=== PATIENT | female | born 1935 | race Caucasian/White ===

== ENCOUNTER 2021-07-23 08:27 | Emergency (ER) | payer OTHER, MEDICARE ==
[2021-07-23] MEDS ORDERED: Bupivacaine 0.5% 10 ML VIAL ONE ×2 (11:11)
== END 2021-07-23 11:56 | disposition home or self-care (01) ==
LOC: ERS 08:27
DX: S52.592A Other fractures of lower end of left radius, initial encounter for closed fracture (principal); S52.615A Nondisplaced fracture of left ulna styloid process, initial encounter for closed fracture; W01.0XXA Fall on same level from slipping, tripping and stumbling without subsequent striking against object, initial encounter
CPT/HCPCS: 25605; J3490

== ENCOUNTER 2021-07-27 10:22 | Outpatient (CLI) | payer MEDICARE, OTHER ==
[2021-07-27 23:18] LABS: SARS-CoV-2 PCR by NAA Not Detected (NotDetected)
== END 2021-07-27 10:23 | disposition home or self-care (01) ==
LOC: LABBT 10:22
PROVIDERS: ATTEND Orthopaedic Surgery
DX: Z01.818 Encounter for other preprocedural examination (principal); S52.502A Unspecified fracture of the lower end of left radius, initial encounter for closed fracture; Z20.822 Contact with and (suspected) exposure to COVID-19
CPT/HCPCS: 93005; U0003; U0005; 93010

== ENCOUNTER 2021-07-30 10:28 | Day surgery (SDC) | payer OTHER, MEDICARE ==
[2021-07-25 10:25] VITALS: BMI 21.0
[2021-07-30] MEDS ORDERED: ceFAZolin Sodium (SDC) 2 GM/100 ML BAG ONE (11:13)
[2021-07-30] MEDS ORDERED: Fentanyl 100 MCG/2 ML VIAL ONE (12:31)
[2021-07-30] MEDS ORDERED: Propofol 500 MG/50 ML VIAL ONE ×2 (13:01→13:02)
[2021-07-30] MEDS ORDERED: PHENYLEPHRINE-NS 100 MCG/ML 10 ML SYRINGE ONE (13:23)
[2021-07-30] MEDS ORDERED: PROPOFOL 200 MG/20 ML VIAL ONE (13:23)
[2021-07-30] MEDS ORDERED: Ropivacaine 0.5% HCl/PF (150 MG/30 ML VIAL) ONE (13:23)
== END 2021-07-30 15:28 | disposition home or self-care (01) ==
LOC: SDC 10:28
PROVIDERS: ATTEND Orthopaedic Surgery
PROC: 0PSJ04Z Reposition Left Radius with Internal Fixation Device, Open Approach (ICD-10-PCS; principal; 2021-07-30)
DX: S52.552A Other extraarticular fracture of lower end of left radius, initial encounter for closed fracture (principal); I10 Essential (primary) hypertension; E03.9 Hypothyroidism, unspecified; Z79.899 Other long term (current) drug therapy; Z88.2 Allergy status to sulfonamides; W01.0XXA Fall on same level from slipping, tripping and stumbling without subsequent striking against object, initial encounter
CPT/HCPCS: 76000; C1713; C1776; J0690; J2704; J2795; J3010

== ENCOUNTER 2021-12-23 10:23 | Emergency (ER) | payer OTHER, MEDICARE ==
[2021-12-23] MEDS ORDERED: HYDROcodone/Acetaminophen 5/325 mg Tablet ONE (10:39)
== END 2021-12-23 13:14 | disposition home or self-care (01) ==
LOC: ERS 10:23
DX: S22.31XA Fracture of one rib, right side, initial encounter for closed fracture (principal); S16.1XXA Strain of muscle, fascia and tendon at neck level, initial encounter; V89.2XXA Person injured in unspecified motor-vehicle accident, traffic, initial encounter
CPT/HCPCS: 71046; 72125; 93005; 94760

== ENCOUNTER 2022-11-06 09:17 | Outpatient (CLI) | payer MEDICARE, OTHER | END 2022-11-06 09:18 | disposition home or self-care (01) | LOC: BICMAMMO 09:17 | PROVIDERS: ATTEND Student in an Organized Health Care Education/Training Program | DX: M81.0 Age-related osteoporosis without current pathological fracture (principal) | CPT/HCPCS: 77080 ==

== ENCOUNTER 2022-11-26 09:31 | Outpatient (CLI) | payer MEDICARE, OTHER | END 2022-11-26 09:32 | disposition home or self-care (01) | LOC: BICRAD 09:31 | PROVIDERS: ATTEND Internal Medicine Rheumatology | DX: M54.50 Low back pain, unspecified (principal); M47.816 Spondylosis without myelopathy or radiculopathy, lumbar region | CPT/HCPCS: 72110 ==